=== PATIENT | female | born 1950 | race American Indian/Alaskan Native ===

== ENCOUNTER 2017-06-26 21:21 | Observation (INO) | payer MEDICARE, OTHER ==
--- NOTE | 2017-06-26 21:55 | ED PDOC ---
Arrival/HPI - General Chief Complaint: Weakness/Neurological Deficit Time Seen by Provider: 06/26/17 21:41 - History of Present Illness Narrative History of Present Illness (Text): 06/26/17 21:55 g Past Medical History - Infectious Disease Hx of Infectious Diseases: None - Cardiac Hx Hypertension: Yes - Pulmonary Hx Respiratory Disorders: No - Neurological Hx Paralysis: No - HEENT Hx HEENT Disorder: No - Renal Hx Renal Disorder: No - Endocrine/Metabolic Hx Diabetes Mellitus Type 2: Yes - Hematological/Oncological Hx Blood Transfusions: No - Integumentary Hx Dermatological Disorder: No - Musculoskeletal/Rheumatological Hx Musculoskeletal Disorders: Yes (HX. GOUT) - Gastrointestinal Hx Gastrointestinal Disorders: No - Genitourinary/Gynecological Hx Genitourinary Disorders: No - Psychiatric Hx Emotional Abuse: No Hx Physical Abuse: No Hx Substance Use: Yes (pot a few days ago) - Surgical History Hx Cardiac Catheterization: Yes - Anesthesia Hx Anesthesia Reactions: No Hx Malignant Hyperthermia: No - Suicidal Assessment Feels Threatened In Home Enviroment: No Family/Social History Smoking Status: Heavy Smoker > 10 Cigarettes Daily Hx Alcohol Use: Yes (social) Hx Substance Use: Yes (pot a few days ago) Substance used: marijuana Allergies/Home Meds Allergies/Adverse Reactions: Allergies amoxicillin trihydrate [From Augmentin] Allergy (Severe, Verified 03/19/16 10:17 ) "FELT SICKER" potassium clavulanate [From Augmentin] Allergy (Severe, Verified 03/19/16 10:17) "FELT SICKER" shellfish derived Adverse Reaction (Severe, Verified 03/19/16 10:17) GOUT AVOIDS Home Medications: Home Meds Medication Instructions Recorded Confirmed Glipizide 10 mg PO BID 03/05/15 06/04/16 Pioglitazone [Actos] 15 mg PO QAM 03/05/15 06/04/16 Lisinopril/Hydrochlorothiazide 1 tab PO QAM 03/19/16 03/26/16 [Zestoretic 10-12.5 mg Tablet] Pravastatin Sodium 20 mg PO QAM 03/19/16 06/04/16 amLODIPine [Norvasc] 10 mg PO QAM 03/19/16 06/04/16 ALPRAZolam [Xanax] 0.25 mg PO HS PRN 03/26/16 03/26/16 Physical Exam Vital Signs Temp Pulse Resp BP Pulse Ox 06/26/17 21:47 98.4 F 76 18 152/72 H 99 Disposition/Present on Arrival - Present on Arrival History of DVT/PE: No History of Uncontrolled Diabetes: No Urinary Catheter: No History of Decub. Ulcer: No History Surgical Site Infection Following: None - Disposition
--- NOTE | 2017-06-26 21:59 | EDPD ---
HPI Stroke - General Time Seen by Provider: 06/26/17 21:41 Chief Complaint: Weakness/Neurological Deficit Historian: Patient - History of Present Illness Narrative History of Present Illness (Free Text): 06/26/17 21:54 Yahaira Burnham is a 67 year old female, whose past medical history includes hypertension, diabetes, and cataract surgery, who presents to the Emergency department complaining of right-sided facial numbness/tingling for 1 hour prior to arrival. Patient states her son noted she was having some difficulty with her speech earlier today. Patient also reports some transient right lower extremity weakness. Patient denies any fever, chills, chest pain, shortness of breath, nausea, vomiting, neck pain, headache, dizziness, vision changes, or any other complaints. PMD: Dr. Loren Loaiza Date:: 06/26/17 Time: 21:54 Onset:: Hours (1 hour TRANSPORT DRIVER) Timing: Currently Symptomatic Context: Home Associated Symptoms: Numbness Exacerbated by: Nothing Relieved by: Nothing - Location Location: Speech Locate Right: Face, Lower extremity - Pain Assessment/Levels Maximum Severity: None rTPA Inclusion/Exclusion - Refusal of Treatment Patient Refused Treatment: No - Inclusion Criteria for Altepase Patient is 18 years or Older: Yes The Clinical Diagnosis of Ischemic Stroke That is Causing a Potentially Disabling Neurological Deficit: No Time of Onset is Well Established to be Less Than 270 Minute Before Treatment Would Begin: Yes Risk/Benefit Discussed With Patient/Family Member Present: Yes - Exclusion Criteria for Altepase Uncontrolled Hypertension at Time of Treatment (Systolic BP above 185 or Diastolic BP above 110 mmHg): No Active Internal Bleeding: No Known Bleeding Diathesis Including but Not Limited to: Platelets Below 100,000/ mm,PTT Above 40 sec After Heparin Use, Current Use of Oral Anitcoagulant With INR Greater Than 1.7 or PT Greater Than 15 secs: No Evidence of an Intracranial Hemorrhage: No Evidence of Major Acute Infarct With Signs Greater Than 1/3 MCA Territory: No Suspicion of Subarachnoid Hemorrhage on Pretreatment Evaluation Even if CT Head Negative For Hemorrhage: No - Warning to TPA With Conditions Following Conditions Weighed Against Anticipated Benefit: Yes Condition: Stroke Serevity Too Mild, Rapid Improvement Past Medical History - Provider Review Nursing Documentation Reviewed: Yes - Infectious Disease Hx of Infectious Diseases: None - Cardiac Hx Hypertension: Yes - Pulmonary Hx Respiratory Disorders: No - Neurological Hx Paralysis: No - HEENT Hx HEENT Disorder: No - Renal Hx Renal Disorder: No - Endocrine/Metabolic Hx Diabetes Mellitus Type 2: Yes - Hematological/Oncological Hx Blood Transfusions: No - Integumentary Hx Dermatological Disorder: No - Musculoskeletal/Rheumatological Hx Musculoskeletal Disorders: Yes (HX. GOUT) - Gastrointestinal Hx Gastrointestinal Disorders: No - Genitourinary/Gynecological Hx Genitourinary Disorders: No - Psychiatric Hx Emotional Abuse: No Hx Physical Abuse: No Hx Substance Use: Yes (pot a few days ago) - Surgical History Hx Cardiac Catheterization: Yes - Anesthesia Hx Anesthesia Reactions: No Hx Malignant Hyperthermia: No - Suicidal Assessment Feels Threatened In Home Enviroment: No Family/Social History - Family/Social History Family History: Non-Contributory - Dr. Hancock Nursing documentation reviewed.: Yes Allergies/Home Meds Allergies/Adverse Reactions: Allergies amoxicillin trihydrate [From Augmentin] Allergy (Severe, Verified 03/19/16 10:17 ) "FELT SICKER" potassium clavulanate [From Augmentin] Allergy (Severe, Verified 03/19/16 10:17) "FELT SICKER" shellfish derived Adverse Reaction (Severe, Verified 03/19/16 10:17) GOUT AVOIDS Home Medications: Home Meds Medication Instructions Recorded Confirmed Aspirin [Adult Low Dose Aspirin EC] 81 mg PO DAILY 06/27/17 06/27/17 GlipiZIDE [Glipizide] 10 mg PO BID 06/27/17 06/27/17 Lisinopril/Hydrochlorothiazide 1 tab PO DAILY 06/27/17 06/27/17 [Lisinopril-Hctz 10-12.5 mg Tab] Pravastatin Sodium [Pravachol] 20 mg PO HS 06/27/17 06/27/17 amLODIPine [Norvasc] 5 mg PO DAILY 06/27/17 06/27/17 Review of Systems - Physician Review All systems were reviewed & negative as marked: Yes - Review of Systems Constitutional: Normal. absent: Fevers Eyes: Normal ENT: Normal Respiratory: Normal. absent: SOB, Cough Cardiovascular: Normal. absent: Chest Pain Gastrointestinal: Normal. absent: Abdominal Pain, Diarrhea, Nausea, Vomiting Genitourinary Female: Normal. absent: Dysuria, Frequency, Hematuria, Urine Output Changes Musculoskeletal: Other (+right lower extremity weakness). absent: Back Pain, Neck Pain Skin: Normal Neurological: Speech Changes, Other (+right facial tingling/numbness). absent: Headache, Dizziness Endocrine: Normal Hemo/Lymphatic: Normal Psychiatric: Normal ED Stroke Physical Exam Vital Signs Reviewed: Yes Vital Signs Temp Pulse Resp BP Pulse Ox 06/26/17 21:47 98.4 F 76 18 152/72 H 99 Temperature: Afebrile Blood Pressure: Hypertensive Pulse: Regular Respiratory Rate: Normal Appearance: Positive for: Well-Appearing, Non-Toxic, Comfortable Pain Distress: None Mental Status: Positive for: Alert and Oriented X 3 - Systems Exam Head: Present: Atraumatic, Normocephalic Pupils: Present: PERRL Extroacular Muscles: Present: EOMI Conjunctiva: Present: Normal Mouth: Present: Moist Mucous Membranes Neck: Present: Normal Range of Motion. No: Meningeal Signs, MIDLINE TENDERNESS , Paraspinal Tenderness Respiratory/Chest: Present: Clear to Auscultation, Good Air Exchange. No: Respiratory Distress, Accessory Muscle Use Cardiovascular: Present: Regular Rate and Rhythm, Normal S1, S2. No: Murmurs Abdomen: Present: Normal Bowel Sounds. No: Tenderness, Distention, Peritoneal Signs Genitourinary/Pelvic Exam: Present: NI. No: C, E Back: Present: GCS, CN, SP Upper Extremity: Present: Normal Inspection, Normal ROM, NORMAL PULSES. No: Cyanosis, Edema Lower Extremity: Present: Normal Inspection, NORMAL PULSES, Normal ROM. No: Edema Neurologic: Present: GCS=15, CN II-XII Intact, Speech Normal, Motor Func Grossly Intact, Normal Sensory Function, Normal Cerebellar Funct, Gait Normal, Memory Normal. No: Pronator Drift, Facial Droop, Dysmetric Finger to Nose Skin: Present: Warm, Dry, Normal Color. No: Rashes Lymphatic: Present: OX3, NI, NC Psychiatric: Present: Alert, Oriented x 3, Normal Insight, Normal Concentration Medical Decision Making ED Course and Treatment: 06/26/17 21:54 Impression: 67 year old female presented for right sided facial tingling/numbness, transient right lower extremity weakness, and speech changes. Differential Diagnosis included but are not limited to: TIA vs. CVA Plan: -- CT Head w/o contrast -- EKG -- Chest X-ray -- Labs, troponin, blood type and screen, lipid panel -- Reassess and disposition Prior Visits: Notes and results from previous visits were reviewed. Progress Notes: 06/26/17 21:54 Pt seen on arrival to Emergency department. Code Stroke called. Pt taken CT scan. 06/26/17 22:17 Reviewed EKG, NSR at 67 bpm. Septal infarct. T-wave changes anteriorly, inferiorly, and laterally. Unchanged from 02/24/2016. 06/26/17 22:25 Reviewed radiology, Chest X-ray shows no acute processes. CT Head shows: Brain: Mild atrophy. No intracranial hemorrhage. No mass. Few scattered subtle foci of decreased attenuation within periventricular/subcortical white matter. Probable chronic lacunar infarct within LEFT basal ganglia. No definite edema. Ventricles: No hydrocephalus. Bones/joints: No acute fracture. Soft tissues: Unremarkable. Vasculature: Atherosclerotic disease of intracranial arteries. Sinuses: Scattered minimal mucosal thickening. Air-fluid level within LEFT maxillary sinus. Air-fluid level within LEFT sphenoid sinus. Mastoid air cells: No mastoid effusion. Orbits: Unremarkable as visualized. IMPRESSION: 1. Nonspecific white matter changes. Acute infarction may be CT occult within first 24 hours. If a focal deficit persists, consider followup CT or MRI for further evaluation. 2. Sinus disease. 3. Incidental/non-acute findings are described above. 06/26/17 23:[address] Sams, neurologist application integrator, states patient is not a candidate for tPA due to minimal symptoms/resolution of symptoms. 06/27/17 01:[address] Bender, who is aware and agrees with plan. Accepts patient into his service. Patient will go to Telemetry Observation for TIA. Request Dr. Sams for consult. - Critical Care Critical Care Minutes: 30 minutes - Lab Interpretations I have reviewed the lab results: Yes - RAD Interpretation Acquisition Marketing Manager: ED Physician, Radiologist - EKG Interpretation Interpreted by ED Physician: Yes Type: 12 lead EKG - Scribe Statement The provider has reviewed the documentation as recorded by the Nikolayibpranay Guevara All medical record entries made by the Scribe were at my direction and personally dictated by me. I have reviewed the chart and agree that the record accurately reflects my personal performance of the history, physical exam, medical decision making, and the department course for this patient. I have also personally directed, reviewed, and agree with the discharge instructions and disposition. NIHSS Scale ([place]) Time Performed: 21:54 - How Severe is the Stoke Baseline Level of Consciousness: 0=Alert LOC to Questions: 0=Both comments correct LOC to commands: 0=Obeys both correctly Best Gaze: 0=Normal Visual: 0=No visual loss Facial: 0=Normal Motor Arm - Left: 0=No drift Motor Arm - Right: 0=No drift Motor Leg - Left: 0=No drift Motor Leg - Right: 0=No drift Limb Ataxia: 0=Absent Sensory: 1=Mild to moderate loss Best Language: 0=No aphasia Dysarthia: 0=Normal articulation Extinction & Inattention (Neglect): 0=Normal, no object Score: 1 Risk Level: Minor Stroke Risk Disposition/Present on Arrival - Present on Arrival Any Indicators Present on Arrival: No History of DVT/PE: No History of Uncontrolled Diabetes: No Urinary Catheter: No History of Decub. Ulcer: No History Surgical Site Infection Following: None - Disposition Have Diagnosis and Disposition been Completed?: Yes Diagnosis: TIA (transient ischemic attack), CVA (cerebral vascular accident) Disposition: HOSPITALIZED Disposition Time: 00:05 Patient Plan: Observation Patient Problems: Current Active Problems Problem Status Onset CVA (cerebral vascular accident) Acute TIA (transient ischemic attack) Acute Condition: STABLE Referrals: Alfonso Loaiza DO [Primary Care Provider] - Follow up with primary Forms: [employer] (Turkmen)
--- NOTE | 2017-06-26 22:15 | CT ---
EXAM: CT Head Without Intravenous Contrast CLINICAL HISTORY: 67 years old, female; Signs and symptoms; Weakness, facial and other: Code stroke/discomort in face/shoulder TECHNIQUE: Axial computed tomography images of the head/brain without intravenous contrast. All CT scans at this facility use one or more dose reduction techniques, viz.: automated exposure control; ma/kV adjustment per patient size (including targeted exams where dose is matched to indication; i.e. head); or iterative reconstruction technique. COMPARISON: No relevant prior studies available. FINDINGS: Brain: Mild atrophy. No intracranial hemorrhage. No mass. Few scattered subtle foci of decreased attenuation within periventricular/subcortical white matter. Probable chronic lacunar infarct within LEFT basal ganglia. No definite edema. Ventricles: No hydrocephalus. Bones/joints: No acute fracture. Soft tissues: Unremarkable. Vasculature: Atherosclerotic disease of intracranial arteries. Sinuses: Scattered minimal mucosal thickening. Air-fluid level within LEFT maxillary sinus. Air-fluid level within LEFT sphenoid sinus. Mastoid air cells: No mastoid effusion. Orbits: Unremarkable as visualized. IMPRESSION: 1. Nonspecific white matter changes. Acute infarction may be CT occult within first 24 hours. If a focal deficit persists, consider followup CT or MRI for further evaluation. 2. Sinus disease. 3. Incidental/non-acute findings are described above.
[2017-06-26 22:39] LABS: BASO # 0.03 K/mm3 (0.0-2.0); BASO % 0.3 % (0.0-3.0); EOS # 0.3 (0.0-0.7); EOS % 2.4 % (1.5-5.0); GRAN # 5.99 (1.4-6.5); GRAN % 53.9 % (50.0-68.0); LYMPH # 4.2 (1.2-3.4); LYMPH % 38.1 % (22.0-35.0); MEAN CELL VOLUME 87.9 fl (80.0-105.0); MEAN CORPUSCULAR HEMOGLOBIN 28.8 pg (25.0-35.0); MEAN CORPUSCULAR HGB CONC 32.8 g/dl (31.0-37.0); MEAN PLATELET VOLUME 10.5 fl (7.0-11.0); MONO # 0.6 (0.1-0.6); MONO % 5.3 % (1.0-6.0); RED CELL DISTRIBUTION WIDTH 14.8 % (11.5-14.5); WHITE BLOOD COUNT 11.1 10^3/ul (4.5-11.0)
[2017-06-26 22:56] LABS: INR 1.15 (0.93-1.08); PARTIAL THROMBOPLASTIN TIME 29.1 Seconds (25.1-36.5)
[2017-06-26 23:29] LABS: CARBON DIOXIDE 27 mmol/L (21-33)
[2017-06-27 00:08] LABS: CHLORIDE 107 mmol/L (98-107); POTASSIUM 3.9 mmol/L (3.6-5.0); SODIUM 143 mmol/L (132-148)
[2017-06-27 00:22] LABS: TROPONIN I 0.03 ng/mL
[2017-06-27 00:33] LABS: ALB/GLOB RATIO 1.1 (1.1-1.8); ALKALINE PHOSPHATASE 66 U/L (38-126); ALT/SGPT 26 U/L (7-56); AST/SGOT 28 U/L (14-36); BILIRUBIN,TOTAL 0.5 mg/dL (0.2-1.3); BLOOD UREA NITROGEN 25 mg/dL (7-21); CALCIUM 10.1 mg/dL (8.4-10.5); CHOLESTEROL 166 mg/dL (130-200); GFR AFRICAN-AMERICAN > 60; GLUCOSE,RANDOM 183 mg/dL (70-110); TOTAL PROTEIN 8.2 g/dL (5.8-8.3)
[2017-06-27] MEDS ORDERED: Sodium Chloride 0.9% 1,000 ML IV STA (01:07)
[2017-06-27 06:40] VITALS: BMI 29.7
--- NOTE | 2017-06-27 08:49 | RAD ---
HISTORY: tia COMPARISON: Chest x-ray performed 02/24/16 TECHNIQUE: Chest, one view. FINDINGS: Examination limited by habitus. LUNGS: No focal consolidation. Please note that chest x-ray has limited sensitivity for the detection of pulmonary masses. PLEURA: No significant pleural effusion identified. No definite pneumothorax . CARDIOVASCULAR: Heart size appears within normal limits. Atherosclerotic calcification of the aorta. OSSEOUS STRUCTURES: No acute osseous abnormality identified. VISUALIZED UPPER ABDOMEN: Unremarkable. OTHER FINDINGS: None. IMPRESSION: No focal consolidation, significant pleural effusion, or definite pneumothorax identified.
[2017-06-27] MEDS: Sodium Chloride 0.45% 1,000 ML IV SCH (09:52)
--- NOTE | 2017-06-27 12:30 | MRI ---
PROCEDURE: MRI brain dated 06/27/2017. HISTORY: TIA/CVA COMPARISON: Comparison made with prior CT scan brain dated 06/26/2017. TECHNIQUE: Multiplanar, multisequence MR images of the brain were obtained without intravenous contrast enhancement. FINDINGS: HEMORRHAGE: No acute intracranial hemorrhage. No evidence of hemosiderin deposition identified on gradient echo weighted sequence. DWI: No evidence of an acute or early subacute infarction seen on diffusion imaging. . BRAIN PARENCHYMA: Multiple tiny focal areas of increased T2 signal seen scattered about the deep and subcortical white matter both cerebral hemispheres which are felt to represent tiny chronic lacunar type infarcts. Mild diffuse/ confluent chronic periventricular white matter ischemic changes also noted.. There are also a few tiny lacunar type infarcts scattered about both basal nuclei admixed with a few dilated perivascular spaces. . None of these changes exhibit restricted diffusion. . Mild generalized volume loss. VENTRICLES: No obstructive hydrocephalus. CRANIUM: Unremarkable. ORBITS: Changes of bilateral cataract surgery again noted PARANASAL SINUSES/MASTOIDS: Small -medium-sized mucous retention cyst and minor mucosal thickening within the left maxillary antrum. There is also mild mucosal thickening within several ethmoid air cells extending superiorly into the frontal sinus. The VASCULAR SYSTEM: Visualized major vascular flow voids at skull base patent. OTHER FINDINGS: The visualized major vascular flow voids IMPRESSION: No acute intracranial hemorrhage or infarct. Mild chronic white matter and basal nuclei ischemic changes. . Mild generalized volume loss. Minor mucoperiosteal inflammatory changes within the aforementioned paranasal sinuses.
[2017-06-27] MEDS: Insulin Reg-MEDIUM-Coverage SC SCH ×3 (13:51→21:41)
--- NOTE | 2017-06-27 15:21 | CP.PCM.CON ---
History of Present Illness - History of Present Illness History of Present Illness: Mrs. Burnham is a 67-year-old woman with a past medical history of DM, HTN, who smokes and presented to the ED with complaints of right facial strange sensation. On initial exam, the left side of her face was drooping and she had difficulty with eye closure. She states that she has had very stressful events in the last month with her father dying, her son's fiance dying and her friend dying. She also states that she did have a viral illness a few weeks back. The MRI of the brain did not show a stroke. Review of Systems - Review of Systems All systems: reviewed and no additional remarkable complaints except Past Patient History - Infectious Disease Hx of Infectious Diseases: None - Past Social History Smoking Status: Heavy Smoker > 10 Cigarettes Daily - CARDIAC Hx Cardiac Disorders: Yes Hx Hypercholesterolemia: Yes Hx Hypertension: Yes - PULMONARY Hx Respiratory Disorders: Yes Hx Bronchitis: Yes - NEUROLOGICAL Hx Neurological Disorder: Yes Hx Migraine: Yes Hx Transient Ischemic Attacks (TIA): Yes - HEENT Hx HEENT Problems: Yes Hx Cataracts: Yes (cataract Sx) - RENAL Hx Chronic Kidney Disease: Yes Hx Kidney Stones: Yes - ENDOCRINE/METABOLIC Hx Endocrine Disorders: Yes Hx Diabetes Mellitus Type 2: Yes - HEMATOLOGICAL/ONCOLOGICAL Hx Blood Disorders: No - INTEGUMENTARY Hx Dermatological Problems: No - MUSCULOSKELETAL/RHEUMATOLOGICAL Hx Falls: No - GASTROINTESTINAL Hx Gastrointestinal Disorders: No - GENITOURINARY/GYNECOLOGICAL Hx Genitourinary Disorders: Yes Hx Urinary Tract Infection: Yes - PSYCHIATRIC Hx Substance Use: Yes (occasionally marijuana) - SURGICAL HISTORY Hx Surgeries: Yes Hx Cardiac Catheterization: Yes - ANESTHESIA Hx Anesthesia Reactions: No Hx Malignant Hyperthermia: No Meds Allergies/Adverse Reactions: Allergies Allergy/AdvReac Type Severity Reaction Status Date / Time amoxicillin trihydrate Allergy Severe "FELT Verified 03/19/16 10:17 [From Augmentin] SICKER" potassium clavulanate Allergy Severe "FELT Verified 03/19/16 10:17 [From Augmentin] SICKER" shellfish derived AdvReac Severe GOUT Verified 03/19/16 10:17 - Medications Medications: Current Medications Amlodipine Besylate (Norvasc) 5 mg PO DAILY [facility] Last Admin: 06/27/17 09:57 Dose: 5 mg Aspirin (Ecotrin) 81 mg PO DAILY [facility] Last Admin: 06/27/17 09:58 Dose: 81 mg Glipizide (Glucotrol) 10 mg PO BID [facility] Last Admin: 06/27/17 09:57 Dose: 10 mg Sodium Chloride (Sodium Chloride 0.45%) 1,000 mls @ 30 mls/hr IV .Q24H [facility] Last Admin: 06/27/17 09:52 Dose: 30 mls/hr Insulin Human Regular (Humulin R Med) 0 units SC ACHS [facility] PRN Reason: Protocol Last Admin: 06/27/17 13:51 Dose: Not Given Nicotine (Nicoderm Cq) 1 patch TD DAILY [facility] Last Admin: 06/27/17 05:21 Dose: 1 patch Physical Exam - Constitutional Appears: Well - Head Exam Head Exam: ATRAUMATIC, NORMAL INSPECTION, NORMOCEPHALIC - Eye Exam Eye Exam: EOMI, Normal appearance, PERRL - ENT Exam ENT Exam: Mucous Membranes Moist, Normal Exam - Neck Exam Neck exam: Positive for: Normal Inspection - Cardiovascular Exam Cardiovascular Exam: REGULAR RHYTHM, +S1, +S2 - GI/Abdominal Exam GI & Abdominal Exam: Normal Bowel Sounds, Soft. absent: Tenderness - Rectal Exam Rectal Exam: Deferred - Extremities Exam Extremities exam: Positive for: normal inspection - Back Exam Back exam: NORMAL INSPECTION - Neurological Exam Neurological exam: Alert, Normal Gait, Oriented x3, Reflexes Normal Additional comments: Left CN 7 Palsy, with difficulty in eye closure and left facial droop. - Psychiatric Exam Psychiatric exam: Normal Affect, Normal Mood - Skin Skin Exam: Dry, Intact, Normal Color, Warm Results - Vital Signs Recent Vital Signs: Last Vital Signs Temp 98.4 F 06/27/17 12:00 Pulse 61 06/27/17 12:00 Resp 21 06/27/17 12:00 BP 135/84 06/27/17 12:00 Pulse Ox 96 06/27/17 06:40 - Labs Result Diagrams: 06/26/17 22:25 06/26/17 22:25 Assessment & Plan (1) Bui's palsy Assessment and Plan: The symptoms seem the have started yesterday. I recommend starting treatment with prednisone and valcyclovir and check HSV-PCR. If PCR is negative, may stop valcyclovir: Prednisone 60 mg PO daily for 5 days, then taper over then next 5 days (total course of therapy is 10 days) Valcyclovir 500 mg PO BID for 5 days. Thank you. Status: Acute Priority: Medium
--- NOTE | 2017-06-27 16:05 | CARD ---
APPROVED REPORT EKG Measurement Heart [id number] <Conclusion> Poor data quality, interpretation may be adversely affected Normal sinus rhythm Possible Left atrial enlargement Septal infarct, age undetermined T wave abnormality, consider inferior ischemia T wave abnormality, consider anterolateral ischemia Abnormal ECG
[2017-06-27 19:04] VITALS: RESP 20
--- NOTE | 2017-06-27 21:22 | HP ---
HISTORY OF PRESENT ILLNESS: I know her very well from the office. She is good patient. She had rough history of having 6 people in her family pass away and when her father that is when she started to get very upset, yelling, screaming, hitting herself, bouncing of the wall, that is when the slurred speech and change in mentation happened in the family noticed this and now she is dealing with right-sided face. It feels hard to her, difficult to move. She is a 67-year-old female with past medical history of hypertension, diabetes, cataract surgery, has right-sided facial numbness, tingling for about an hour prior to arrival. Son noticed it to and the change in her face and speech was off earlier in the day. The right side of the face feels tight and she is here, I sent her to the emergency room when she called me. PAST MEDICAL HISTORY: Hypertension, diabetes, gout, substance abuse, marijuana. FAMILY HISTORY: Hypertension and diabetes in the family. ALLERGIES: SHE HAS ALLERGIES TO PENICILLIN, POTASSIUM AND SHELLFISH. MEDICATIONS: She takes aspirin, glipizide, lisinopril, hydrochlorothiazide, Pravachol and Norvasc for the hypertension, high cholesterol, diabetes and she has been on baby aspirin. REVIEW OF SYSTEMS: No acute vision changes. No acute hearing changes. No shortness of breath. No chest pain. No abdominal pain, nausea, vomiting, constipation, diarrhea. No problems urinating. There is right lower extremity weakness. There is right facial tightness and decrease in motion of the face. Also right facial tingling and numbness. No headache. No change in vision. No sweating. No anxiety. PHYSICAL EXAMINATION: GENERAL: She is well appearing, comfortable, nontoxic at this time, sitting up in bed, alert and oriented x3. Her face is off on the right side. VITAL SIGNS: She has 98.4 temperature, 76 pulse, 18 respiratory rate, 152/72 blood pressure and 99% O2 sat on room air. HEENT: Head is atraumatic and normocephalic. Extraocular muscles intact. Pupils equally reactive to light and accommodation. Throat is moist. NECK: Supple. No meningeal signs. HEART: Regular rate. Normal S1 and S2. LUNGS: Decreased breath sounds. Clear to auscultation. No wheezes. No rhonchi. No rales. ABDOMEN: Soft, nontender. Positive bowel sounds. No guarding. No rebound. No CVA tenderness. NEUROLOGIC: GCS is 15. Cranial nerves II-XII grossly intact. She can smile. She can stick out her tongue midline. She can raise both arms over the head. She can close her eyes tight but right side of the face is little bit droopy compared to the left. EXTREMITIES: No edema. GCS is 15. SKIN: Warm and dry. No apparent rashes or ulcers. Alert and oriented x3. No palpable lymphadenopathy appreciated. Thyroid midline. She had multiple issues. LABORATORY DATA: CAT showed nonspecific white matter changes, acute infarction may be. See in the next 24 hours if you want to recheck it with CT and MRI. We will do an MRI of the brain. There is some sinus disease. The chest x-ray was normal. She had blood tests, which showed 143 sodium, potassium 3.9, BUN 25, creatinine 1. GFR is 55. Sugar is 183. I will put her back on the diabetes medication, insulin coverage. Calcium is 10.1. Total bilirubin 0.5. AST is 28, ALT is 26, alkaline phosphatase is 66, troponin one is 0.03, total protein is 8.2, albumin is 4.3, globulin 3.9. Blood sugar is 166. LDL is 92, HDL 35. She has 1.15 INR, 11.1. White count, could be reactionary, hemoglobin 13.1, hematocrit 40 and platelets are 233. IMPRESSION AND PLAN: She will have consult with Cardiology and Neurology. IV fluids, aspirin, Glucotrol, Nicoderm patch, Norvasc, mostly I am going to put her on insulin coverage. We will check her labs tomorrow. MRI of the brain and this is history and physical on Yahaira Burnham, who is here with right-sided face changes. Rule out CVA versus TIA, hypertension, diabetes history. Alfonso Loaiza DO
[2017-06-28 06:46] VITALS: TEMP 97.8; O2SAT 98
[2017-06-28 07:21] LABS: HEMATOCRIT 38.8 % (36.0-48.0); MEAN CORPUSCULAR HEMOGLOBIN 28.2 pg (25.0-35.0); MEAN CORPUSCULAR HGB CONC 32.7 g/dl (31.0-37.0); MEAN PLATELET VOLUME 10.2 fl (7.0-11.0); RED CELL DISTRIBUTION WIDTH 14.5 % (11.5-14.5); WHITE BLOOD COUNT 11.6 10^3/ul (4.5-11.0)
--- NOTE | 2017-06-28 07:21 | CP.PCM.PN ---
Subjective - Date & Time of Evaluation Date of Evaluation: 06/28/17 Time of Evaluation: 07:19 - Subjective Subjective: Ms. Burnham was seen and examined at the bedside. She is alert, oriented in all spheres. She denies any headache, dizziness, lightheadedness, nausea, vomiting or numbness. There was no untoward events overnight. Objective - Vital Signs/Intake and Output Vital Signs (last 24 hours): Temp Pulse Resp BP Pulse Ox 97.8 F 61 20 130/76 98 06/28/17 06:00 06/28/17 06:00 06/28/17 06:00 06/28/17 06:00 06/28/17 06:00 - Medications Medications: Current Medications Amlodipine Besylate (Norvasc) 5 mg PO DAILY [facility] Last Admin: 06/27/17 09:57 Dose: 5 mg Aspirin (Ecotrin) 81 mg PO DAILY [facility] Last Admin: 06/27/17 09:58 Dose: 81 mg Famotidine (Pepcid) 40 mg PO HS [facility] Last Admin: 06/27/17 21:28 Dose: 40 mg Glipizide (Glucotrol) 10 mg PO BID [facility] Last Admin: 06/27/17 17:20 Dose: 10 mg Sodium Chloride (Sodium Chloride 0.45%) 1,000 mls @ 30 mls/hr IV .Q24H [facility] Last Admin: 06/27/17 09:52 Dose: 30 mls/hr Insulin Human Regular (Humulin R Med) 0 units SC ACHS [facility] PRN Reason: Protocol Last Admin: 06/27/17 21:41 Dose: Not Given Nicotine (Nicoderm Cq) 1 patch TD DAILY [facility] Last Admin: 06/27/17 05:21 Dose: 1 patch Prednisone (Prednisone Tab) 60 mg PO DAILY [facility] Last Admin: 06/27/17 17:20 Dose: 60 mg Valacyclovir HCl (Valtrex) 500 mg PO BID [facility] PRN Reason: Protocol Last Admin: 06/27/17 17:20 Dose: 500 mg - Labs Labs: PT 12.6 SECONDS (9.4-12.5) H 06/26/17 22:25 INR 1.15 (0.93-1.08) H 06/26/17 22:25 APTT 29.1 Seconds (25.1-36.5) 12/02/17 22:25 - Constitutional Appears: No Acute Distress - Head Exam Head Exam: ATRAUMATIC - Neurological Exam Neurological Exam: Alert, Awake, CN II-XII Intact, Normal Gait, Oriented x3 Additional comments: Left CN 7 Palsy, with difficulty in eye closure and left facial droop. Assessment and Plan (1) Bui's palsy Assessment & Plan: Case discussed with Dr. Sams, continue all current medical regimen to include decadron and valtrex. There is no new recommendations from neurology. Status: Acute
[2017-06-28 08:00] LABS: ALB/GLOB RATIO 1.1 (1.1-1.8); ALKALINE PHOSPHATASE 66 U/L (38-126); ALT/SGPT 21 U/L (7-56); AST/SGOT 31 U/L (14-36); BILIRUBIN,TOTAL 0.6 mg/dL (0.2-1.3); BLOOD UREA NITROGEN 23 mg/dL (7-21); CALCIUM 9.6 mg/dL (8.4-10.5); CARBON DIOXIDE 22 mmol/L (21-33); CHLORIDE 107 mmol/L (98-107); GFR AFRICAN-AMERICAN > 60; GLUCOSE,RANDOM 143 mg/dL (70-110); POTASSIUM 4.9 mmol/L (3.6-5.0); SODIUM 140 mmol/L (132-148); TOTAL PROTEIN 8.2 g/dL (5.8-8.3)
[2017-06-28] MEDS: Insulin Reg-MEDIUM-Coverage SC SCH ×2 (10:47→12:50)
[2017-06-28] MEDS: Sodium Chloride 0.45% 1,000 ML IV SCH (10:56)
[2017-06-28 11:01] VITALS: BP 117/67; PULSE 67
[2017-06-28] MEDS ORDERED: Pneumococcal 23-Valent Vaccine IM ONE (11:07)
[2017-06-28] MEDS ORDERED: Influenza Vaccine 60 mcg/0.5 mL SYR (4YR UP) IM ONE (11:07)
--- NOTE | 2017-06-28 14:03 | CON ---
DATE: 06/28/2017 CARDIOLOGY CONSULTATION HISTORY OF PRESENT ILLNESS: The patient is a 67-year-old woman who presents with transient and recurrent facial weakness as well as dysarthria. The patient's cardiac risk factors include diabetes mellitus, hypertension, hypercholesterolemia and is a former smoker, just quit recently. She has documented on nonobstructive CAD by catheterization in the past. In addition, she carries a diagnosis of hypertrophic cardiomyopathy without obstruction. SOCIAL HISTORY: The patient is currently taking the nicotine patch. REVIEW OF SYSTEMS: A 14-point review of systems was reviewed in detail. There was transient chest pain on admission, but is now since resolved. PHYSICAL EXAMINATION: VITAL SIGNS: Blood pressure is 117/67 and the heart rates in the 60s. NECK: Negative JVD. LUNGS: Without rales. HEART: Reveals S1 and S2. EXTREMITIES: Without edema. DIAGNOSTIC DATA: Includes EKG that reveals diffuse ST-T changes. LABORATORY DATA: Hemoglobin is 12.7. Chemistries; troponins are negative. IMPRESSION 1. Bui's palsy. 2. Hypertension. 3. Diabetes mellitus. 4. Current smoker and has recently stopped. 5. Hypercholesterolemia. 6. Hypertrophic cardiomyopathy without obstruction. PLAN: Given these findings that given these findings, her abnormality in her EKG is secondary to her hypertrophic cardiomyopathy. Her transient chest pain is noted and cannot be explained by her hypertrophic cardiomyopathy. The patient has been discharged today. Given her risk factors, we will bring the patient back in a week for a stress test to rule out significant coronary disease. Kelvin Ardon MD
--- NOTE | 2017-06-29 03:15 | DS ---
HOSPITAL COURSE: I saw Yahaira resting comfortable in bed. Her face is still a little bit off. It turns like she is having Bui's palsy. MEDICATIONS: She will be on Ecotrin; Glucotrol; Nicoderm; Norvasc; Pepcid; prednisone 60 a day for 5 more days, then 50, then 40, then 30, then 20, then 10 mg, and stop. Also, she will be on Valtrex 500 twice a day for 5 days. She understands this. PHYSICAL EXAMINATION: VITAL SIGNS: She had a 97.8 temp, 61 pulse, 130/76 blood pressure, 20 respiratory rate, 98% O2 sat on room air. HEENT: Head, atraumatic, normocephalic. Right eye is getting difficult to close, still there is stiffness in the right side of the face. She can smile. Tongue midline. HEART: Regular rate. LUNGS: Clear to auscultation. ABDOMEN: Soft. EXTREMITIES: No edema. LABORATORY DATA: She has a 11.6 white count, 12.7 hemoglobin, 38.8 hematocrit with 221 platelets. Sodium 140, potassium 4.9, BUN 23, creatinine 1, GFR is 55, sugar is 143, calcium is 9.6, total bili is 0.6, AST is 31, ALT is 21, alk phos 66, total protein is 8.2, albumin is 4.2, globulin 4. She will be on medications that she normally takes plus the prednisone and the Valtrex. MRI of the brain was okay as well as the CAT scan of the head was okay. ASSESSMENT AND PLAN: She is having Bui's palsy. She is on observation. She will be discharged today to home. Follow up as outpatient. Alfonso Loaiza DO MTDD
== END 2017-06-28 16:45 | disposition home or self-care (01) ==
LOC: ED 21:21 → ERH 06-27 00:05 → 3RSO 06-27 02:21
PROVIDERS: ADMIT Family Medicine; ATTEND Family Medicine
DX: G51.0 Bell's palsy (principal); I12.9 Hypertensive chronic kidney disease with stage 1 through stage 4 chronic kidney disease, or unspecified chronic kidney disease; E11.22 Type 2 diabetes mellitus with diabetic chronic kidney disease; I42.2 Other hypertrophic cardiomyopathy; N18.9 Chronic kidney disease, unspecified; M10.9 Gout, unspecified; E78.00 Pure hypercholesterolemia, unspecified; Z88.0 Allergy status to penicillin; Z79.84 Long term (current) use of oral hypoglycemic drugs; Z79.82 Long term (current) use of aspirin; Z87.891 Personal history of nicotine dependence; Z23 Encounter for immunization
CPT/HCPCS: 36415; 70450; 70551; 71010; 80053; 80061; 83036; 84484; 85025; 85027; 85610; 85730; 86850; 86900; 90674; 90732; 93005; 99285; G0008; G0009; G0378; J7030; J7040